=== PATIENT | female | born 1965 | race Native Hawaiian/Other Pacific Islander ===

== ENCOUNTER 2021-02-14 08:30 | Outpatient (CLI) | payer OTHER | END 2021-02-14 19:02 | disposition home or self-care (01) | LOC: MAMMO 08:30 → EDBD 08:30 → MAMMO 19:02 | PROVIDERS: ATTEND Nurse Practitioner Family | DX: Z12.31 Encounter for screening mammogram for malignant neoplasm of breast (principal) ==